=== PATIENT | female | born 2000 | race Caucasian/White ===

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

== ENCOUNTER 2021-03-16 15:54 | Emergency (ER) | payer BC, SELFPAY ==
[2021-03-16 16:01] VITALS: BP 136/68; PULSE 87; RESP 16; TEMP 36.5; O2SAT 99
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
[2021-03-16 17:29] LABS: Bilirubin Negative (Negative); Blood Negative (Negative); Clarity Sl Cloudy (Clear); Glucose Negative (Negative); Ketones Negative (Negative); Leukocyte Esterase Negative (Negative); Nitrite Negative (Negative); Specific Gravity >= 1.030 (1.005-1.025); Urobilinogen 0.2 EU/dL (Up TO 0.2); pH 5.5 (5-8)
[2021-03-16] MEDS: Orphenadrine 60 MG/2 ML VIAL IM (17:41)
[2021-03-16] MEDS: Ketorolac 60 MG/2 ML VIAL IM (17:42)
== END 2021-03-16 17:52 | disposition home or self-care (01) ==
PROVIDERS: Emergency Provider Physician Assistant; PCP Nurse Practitioner Adult Health
DX: M54.2 Cervicalgia (principal); G89.29 Other chronic pain
CPT/HCPCS: 81025; 96372; 99284; J2360; 81003; 99283; J1885

== ENCOUNTER 2021-10-14 15:50 | Outpatient (REF) | payer BC, SELFPAY ==
[2021-10-19 13:32] LABS: Helicobacter pylori Ag, Feces Negative (Negative)
== END 2021-10-14 15:51 | disposition home or self-care (01) ==
LOC: LBN 15:50
PROVIDERS: PCP Nurse Practitioner Adult Health; Visit Provider Physical Therapy Assistant
DX: K21.9 Gastro-esophageal reflux disease without esophagitis (principal)
CPT/HCPCS: 87338

== ENCOUNTER 2021-10-21 00:56 | Outpatient (CLI) | payer BC, SELFPAY ==
--- OUTSIDE RECORDS SUMMARY | 2021-10-21 01:07 | XMS_ITS | Encounter Summary ---
:2000 Author Organization [facility] Address [address] [place] [address] Care Team Providers Name Role Phone Unknown, Provider Primary Care Provider Encounter Details Date Type Department Care Team Description 10/15/2021 Lab Requisition [facility] Outr Resulting Lab, Pathology & Laboratory Provider [facility] [address] [place] [address] Social History Tobacco Use Types Packs/Day Years Used Date Never Assessed Sex Assigned at Date Recorded Not on file documented as of this encounter Plan of Treatment Not on filedocumented as of this encounter Procedures Procedure Name Priority Date/Time Associated Diagnosis Comme nts H. PYLORI ANTIGEN Routine 10/14/2021 11:07 Result s for this EDT procedure are i n the results section. documented in this encounter Results H. PYLORI ANTIGEN (10/14/2021 11:07 EDT) Pathologist Sig nature H. Pylori Negative Negative [facility] Specimen Feces - Specimen from rectum (specimen) Narrative [facility] - 10/19/2021 13:27 EDT Results were obtained with the [employer] P latinum HpSA Plus SHOSHANA. Performing Organization Address City/State/ZIP Code Phon e Number [facility] [address] [place] [address] SERVICES documented in this encounter Visit Diagnoses Not on filedocumented in this encounter Care Teams Health Care Aide Relationship Specialty Start Date End Date Unknown, Provider, PCP - General 08/22/17 documented as of this encounter
--- NOTE | 2021-10-21 07:15 | DI.RAD_ITS ---
Exam(s) RF UPPER GI SERIES SINGLE EXAM: RF UPPER GI SERIES SINGLE CLINICAL HISTORY: GERD,K21.9 TECHNIQUE: 2D and realtime digital imaging was performed. CONTRAST MATERIAL: Oral barium contrast was administered. COMPARISON: No exams were available for comparison FINDINGS: Initial plain film of the abdomen reveals a large quantity of stool throughout the colon. No small b owel or gastric distension. No radiopaque calculi. Esophagus: The esophagus is patent with no evid ence for erosions, fold thickening, strictures, or masses. With regards to the motility, there is a n ormal primary stripping wave. No tertiary contractions were noted. There is no hiatal hernia or gastr oesophageal reflux. Stomach: The stomach shows no gastric fold thickening, erosions, or masses. Duodenal Bulb: Shows no gastric fold thickening, erosions, or masses. There is normal gastric emptyi ng. IMPRESSION: Large quantity of stool, otherwise normal upper GI series. Fluoro time 27 seconds RADIATION DOSE DELIVERED: Ka,r=6.79 mGy
[2021-10-21] MEDS: Simethicone/Sod Bicarb/Cit Ac, 4 gram PACKET 1 PACKET PO (09:30)
[2021-10-21] MEDS: Barium Sulfate 60% W/V 355 ML BTL 20 ML PO (09:32)
== END 2021-10-21 01:16 ==
LOC: DI 00:57
PROVIDERS: PCP Nurse Practitioner Adult Health; Visit Provider Physical Therapy Assistant
DX: K21.9 Gastro-esophageal reflux disease without esophagitis (principal); R19.5 Other fecal abnormalities
CPT/HCPCS: 74240

== ENCOUNTER 2022-05-01 01:38 | Outpatient (CLI) | payer BC, SELFPAY ==
--- NOTE | 2022-05-01 07:30 | DI.RAD_ITS ---
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 TECHNIQUE: 2D digital imaging was performed of the left shoulder. Four images were obtained. AP, G rashey, Y-view and axillary views were obtained. COMPARISON: No exams were available for comparison FINDINGS: BONES: No acute fracture is present. No bony destructive lesion is seen. JOINTS: No dislocation present. SOFT TISSUE: Normal. IMPRESSION: Unremarkable radiographs of the left shoulder. DATA REPOSITORY: RADIATION DOSE DELIVERED:
== END 2022-05-01 01:58 ==
LOC: DI 01:38
PROVIDERS: PCP Nurse Practitioner Adult Health; Visit Provider Family Medicine
DX: M19.012 Primary osteoarthritis, left shoulder (principal)
CPT/HCPCS: 73030

== ENCOUNTER 2022-05-03 13:42 | Emergency (ER) | payer BC, SELFPAY ==
[2022-05-03] VITALS (7 sets, daily range): BP systolic 98–124; BP diastolic 60–87; PULSE 68–101; RESP 16–25; TEMP 36.9–37.1; O2SAT 98–100
--- NOTE | 2022-05-03 13:30 | RT.EKG_ITS ---
APPROVED REPORT Exam: Resting ECG Reason for Exam: CHEST PAIN Patient Location: E HR:78 bpm ECG Measurements Heart Rate 78 AXIS CO 133 P 35 QRSd 122 QRS 16 QT 379 T 29 QTc 430 Conclusion Sinus rhythm...normal P axis, V-rate 60- 99 Right bundle branch block...QRSd>120, terminal axis(90,270)
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
[2022-05-03 14:26] LABS: Abs Immature Grans 0.02 10^3/uL (0.0-0.06); Absolute Basophil Count 0.06 10^3/uL (0.0-0.2); Absolute Eosinophil Count 0.07 10^3/uL (0.0-0.7); Absolute Lymphocyte Count 2.48 10^3/uL (1.2-3.4); Absolute Monocyte Count 0.46 10^3/uL (0.1-0.8); Absolute Neutrophil Count 4.64 10^3/uL (1.2-6.7); Basophils % 0.8; Eosinophils % 0.9; HCT 39.7 % (36.0-46.0); HGB 13.5 g/dL (11.2-15.7); Immature Grans % 0.3; Lymphocytes % 32.1; MCH 27.3 pg (27.0-33.0); MCV 80 fL (80-95); MPV 10.1 fL (8.0-11.0); Neutrophils % 59.9; Platelet Count 264 10^3/uL (130-400); RBC 4.94 10^6/uL (3.93-5.22); RDW 12.4 % (11.7-14.6); RDW-SD 35.9 fL; WBC 7.73 10^3/uL (4.4-10.8)
[2022-05-03 14:48] LABS: ALT 19 U/L (14-59); AST 17 U/L (15-37); Albumin 4.5 g/dL (3.4-5.0); Alkaline Phosphatase 66 U/L (46-116); Anion Gap 6.7 mmol/L (3-11); BUN 12 mg/dL (7-18); Bilirubin, Total 0.5 mg/dL (0.2-1.0); CO2 26.3 mmol/L (21.0-32.0); CREATININE 0.8 mg/dL (0.55-1.02); Calcium 9.5 mg/dL (8.5-10.1); Chloride 101 mmol/L (98-107); Estimated GFR 106.77 (mL/min/1.73m2); Glucose 124 mg/dL (74-106); Magnesium 1.9 mg/dL (1.8-2.4); Potassium 3.4 mmol/L (3.5-5.1); Sodium 134 mmol/L (136-145); Total Protein 8.6 g/dL (6.4-8.2); Troponin I < 50 ng/L (<or=60)
[2022-05-03 15:14] LABS: D-Dimer 281 ng/mlFEU (<500)
[2022-05-03] MEDS: Normal Saline 1,000 ML 1000 ML IV (15:27)
[2022-05-03] MEDS: Potassium Chloride 20 MEQ TABCR 40 MEQ PO (15:58)
== END 2022-05-03 16:03 | disposition home or self-care (01) ==
PROVIDERS: Emergency Provider Registered Nurse Emergency; PCP Nurse Practitioner Adult Health
DX: R07.89 Other chest pain (principal); F41.9 Anxiety disorder, unspecified; I45.10 Unspecified right bundle-branch block; E87.6 Hypokalemia; R00.0 Tachycardia, unspecified; Z86.16 Personal history of COVID-19
CPT/HCPCS: 36415; 80053; 81025; 93005; 96360; 99284; 83735; 84484; 85025; 85379; 93010

== ENCOUNTER 2022-06-08 10:27 | Outpatient (CLI) | payer BC, SELFPAY ==
--- NOTE | 2022-06-08 10:15 | RT.EKG_ITS ---
APPROVED REPORT Exam: Resting ECG Reason for Exam: assess rhythm Patient Location: O HR:66 bpm ECG Measurements Heart Rate 66 AXIS MN 149 P 24 QRSd 122 QRS 16 QT 401 T 21 QTc 421 Conclusion Sinus rhythm...normal P axis, V-rate 50- 99 Right bundle branch block...QRSd>120, terminal axis(90,270)
== END 2022-06-08 10:28 | disposition home or self-care (01) ==
LOC: DI.KIM 10:28
PROVIDERS: PCP Nurse Practitioner Adult Health; Visit Provider Nurse Practitioner Adult Health
DX: R07.9 Chest pain, unspecified (principal); U07.1 COVID-19; R94.31 Abnormal electrocardiogram [ECG] [EKG]; I45.19 Other right bundle-branch block
CPT/HCPCS: 93010

== ENCOUNTER 2022-06-16 01:00 | Outpatient (CLI) | payer BC, SELFPAY ==
--- NOTE | 2022-06-16 06:45 | DI.MRI_ITS ---
Exam(s) MR UPPER JOINT LT WO EXAM: MR UPPER JOINT LT WO CLINICAL HISTORY: L SHOULDER PAIN,tendinopathy lt biceps tendon, m67.992 TECHNIQUE: Multiplanar multisequence MRI of the shoulder was performed. COMPARISON: CR XR SHOULDER LT COMPLETE 2+V from 05/01/2022 FINDINGS: MARROW:There is no evidence of fracture, Hill-Sachs deformity, nor ominous osseous lesions. ROTATOR CUFF MECHANISM: AC JOINT/ACROMIUM: No significant degenerative changes in the AC joint. Undersurface of the acromion is flat. No impinging hook nor osteophytic ridge.. There is no evidence of os acromiale. Supraspinatus: Intact. No evidence of tear nor muscle atrophy. Infraspinatus: Intact. No evidence of tear nor muscle atrophy. Teres Minor: Intact. No evidence of tear nor muscle atrophy. Subscapularis/anterior cuff: Intact. No abnormal signal at the level of the multipennate insertional fibers. No significant tear nor atrophy. BICEPS TENDON: Biceps tendon is not displaced from the intertubercular groove. No tear nor significa nt tenosynovitis. Short head biceps tendon appears unremarkable and no abnormal signal at its attach ment site to the coracoid process. LABRUM: No obvious labral tear identified. No evidence of paralabral cyst. GLENOHUMERAL JOINT: No joint effusion nor obvious loose intra-articular bodies. No chondral defects. No osteophytes. No degenerative subarticular cysts. No evidence of capsular tear. The inferior gle nohumeral ligament is intact. QUADRILATERAL SPACE: No evidence of mass in the region of the axillary nerve and dorsal circumflex hu meral vessels. Visualized triceps muscle at this level appears unremarkable. IMPRESSION: 1. No evidence of rotator cuff tear nor tendinitis of the rotator cuff components. No muscle atrophy . No significant impingement in the subacromial arch. 2. No evidence of biceps tendon displacement nor tear. No tenosynovitis evident. 3. No obvious labral tears. 4. No joint effusion or loose intra-articular bodies evident. DATA REPOSITORY:
== END 2022-06-16 01:20 ==
LOC: DI 01:00
PROVIDERS: PCP Nurse Practitioner Adult Health; Visit Provider Student in an Organized Health Care Education/Training Program
DX: M25.512 Pain in left shoulder; M67.812 Other specified disorders of synovium, left shoulder; M67.814 Other specified disorders of tendon, left shoulder
CPT/HCPCS: 73221

== ENCOUNTER 2022-06-16 01:08 | Outpatient (CLI) | payer BC, SELFPAY ==
--- NOTE | 2022-06-16 08:20 | DI.RAD_ITS ---
Exam(s) XR CHEST 2V PA LATERAL EXAM: XR CHEST 2V PA LATERAL CLINICAL HISTORY: Recent COVID,chest pain, chk heart, lungs,cough,r05.9,r07.9. TECHNIQUE: 2D digital imaging was performed. COMPARISON: No exams were available for comparison FINDINGS: 2 views: Heart size is normal. The mediastinum is not widened. Lungs are clear. No infiltrates nor pleural effusions. IMPRESSION: No acute pulmonary findings. DATA REPOSITORY: RADIATION DOSE DELIVERED:
== END 2022-06-16 01:28 ==
LOC: DI 01:09
PROVIDERS: PCP Nurse Practitioner Adult Health; Visit Provider Nurse Practitioner Adult Health
DX: R05.8 Other specified cough (principal); R07.89 Other chest pain; Z86.16 Personal history of COVID-19
CPT/HCPCS: 71046

== ENCOUNTER 2022-06-21 02:56 | Outpatient (CLI) | payer BC, SELFPAY ==
[2022-06-21 11:28] LABS: Abs Immature Grans 0.02 10^3/uL (0.0-0.06); Absolute Basophil Count 0.07 10^3/uL (0.0-0.2); Absolute Eosinophil Count 0.19 10^3/uL (0.0-0.7); Absolute Lymphocyte Count 2.65 10^3/uL (1.2-3.4); Absolute Monocyte Count 0.51 10^3/uL (0.1-0.8); Absolute Neutrophil Count 3.44 10^3/uL (1.2-6.7); ESR 6 mm/hr (0-20); Eosinophils % 2.8; HCT 38.7 % (36.0-46.0); HGB 12.5 g/dL (11.2-15.7); Immature Grans % 0.3; Lymphocytes % 38.5; MCH 26.7 pg (27.0-33.0); MCHC 32.3 % (32.0-36.0); MCV 83 fL (80-95); MPV 10.1 fL (8.0-11.0); Monocytes % 7.4; Platelet Count 228 10^3/uL (130-400); RBC 4.68 10^6/uL (3.93-5.22); RDW 13.2 % (11.7-14.6); RDW-SD 39.2 fL; WBC 6.88 10^3/uL (4.4-10.8)
[2022-06-21 12:22] LABS: ALT 23 U/L (14-59); AST 15 U/L (15-37); Albumin 4.1 g/dL (3.4-5.0); Alkaline Phosphatase 61 U/L (46-116); Anion Gap 9.7 mmol/L (3-11); BUN 13 mg/dL (7-18); Bilirubin, Total 0.2 mg/dL (0.2-1.0); C-Reactive Protein 0.09 mg/dL (0.0-0.3); CO2 26.3 mmol/L (21.0-32.0); CREATININE 0.8 mg/dL (0.55-1.02); Calcium 9.6 mg/dL (8.5-10.1); Chloride 105 mmol/L (98-107); Estimated GFR 106.77 (mL/min/1.73m2); Glucose 94 mg/dL (74-106); Lipase 60 U/L (16-77); Potassium 4.3 mmol/L (3.5-5.1); Sodium 141 mmol/L (136-145); TSH (W/Ref FT4) 1.26 uIU/mL (0.36-3.74); Total Protein 7.5 g/dL (6.4-8.2)
== END 2022-06-21 02:57 | disposition home or self-care (01) ==
LOC: LBO 02:56
PROVIDERS: PCP Nurse Practitioner Adult Health; Referring Provider Nurse Practitioner Adult Health; Visit Provider Nurse Practitioner Adult Health
DX: R05.9 Cough, unspecified (principal); R07.9 Chest pain, unspecified
CPT/HCPCS: 36415; 80053; 83690; 85652; 84443; 85025; 86140

== ENCOUNTER 2024-02-12 16:29 | Outpatient (CLI) | payer BC, SELFPAY ==
[2024-02-12 15:35] LABS: Abs Immature Grans 0.01 10^3/uL (0.0-0.06); Absolute Basophil Count 0.09 10^3/uL (0.0-0.2); Absolute Eosinophil Count 0.12 10^3/uL (0.0-0.7); Absolute Lymphocyte Count 2.67 10^3/uL (1.2-3.4); Absolute Monocyte Count 0.57 10^3/uL (0.1-0.8); Absolute Neutrophil Count 4.92 10^3/uL (1.2-6.7); Basophils % 1.1 %; Eosinophils % 1.4 %; HCT 42.1 % (36.0-46.0); HGB 13.5 g/dL (11.2-15.7); Immature Grans % 0.1 %; Lymphocytes % 31.9 %; MCH 26.8 pg (27.0-33.0); MCHC 32.1 % (32.0-36.0); MCV 84 fL (80-95); MPV 9.6 fL (8.0-11.0); Monocytes % 6.8 %; Neutrophils % 58.7 %; Platelet Count 296 10^3/uL (130-400); RBC 5.03 10^6/uL (3.93-5.22); RDW 13.3 % (11.7-14.6); RDW-SD 40.9 fL; WBC 8.38 10^3/uL (4.4-10.8)
[2024-02-12 17:49] LABS: TSH (W/Ref FT4) 1.16 uIU/mL (0.36-3.74)
== END 2024-02-12 16:30 | disposition home or self-care (01) ==
LOC: LBO 16:29
PROVIDERS: Advanced Practice Midwife; PCP Nurse Practitioner Adult Health; Visit Provider Obstetrics & Gynecology
DX: N92.0 Excessive and frequent menstruation with regular cycle (principal); F32.9 Major depressive disorder, single episode, unspecified
CPT/HCPCS: 36415; 84443; 85025

== ENCOUNTER 2024-03-31 21:31 | Outpatient (REF) | payer BC, SELFPAY | END 2024-03-31 21:32 | disposition home or self-care (01) | LOC: LBN 21:31 | PROVIDERS: PCP Nurse Practitioner Adult Health; Visit Provider Physician Assistant | DX: J02.9 Acute pharyngitis, unspecified (principal) | CPT/HCPCS: 87070 ==

== ENCOUNTER 2024-11-26 14:09 | Outpatient (CLI) | payer OTHER, SELFPAY ==
--- NOTE | 2024-11-26 14:00 | RT.EKG_ITS ---
APPROVED REPORT Exam: Resting ECG Reason for Exam: chest pain Patient Location: O HR:62 bpm ECG Measurements Heart Rate 62 AXIS MD 143 P 18 QRSd 129 QRS 15 QT 430 T 22 QTc 437 Conclusion Sinus rhythm...normal P axis, V-rate 50- 99 Right bundle branch block...QRSd>120, terminal axis(90,270)
== END 2024-11-26 14:10 | disposition home or self-care (01) ==
PROVIDERS: PCP Nurse Practitioner Adult Health; Visit Provider Nurse Practitioner Adult Health
DX: R07.9 Chest pain, unspecified (principal); Z13.1 Encounter for screening for diabetes mellitus; Z13.220 Encounter for screening for lipoid disorders; Z11.4 Encounter for screening for human immunodeficiency virus [HIV]; Z11.59 Encounter for screening for other viral diseases; I45.10 Unspecified right bundle-branch block
CPT/HCPCS: 93010

== ENCOUNTER 2024-12-05 00:26 | Outpatient (CLI) | payer OTHER, SELFPAY ==
[2024-12-05 08:49] LABS: Anion Gap 10.0 mmol/L (3-11); BUN 13 mg/dL (7-18); CO2 25.0 mmol/L (21.0-32.0); Calcium 9.1 mg/dL (8.5-10.1); Calculated LDL 90 mg/dL (<100); Chloride 105 mmol/L (98-107); Cholesterol 161 mg/dL (<200); Estimated GFR 123.01 (mL/min/1.73m2); Glucose 93 mg/dL (74-106); HDL Cholesterol 62 mg/dL (>or=50); Potassium 4.0 mmol/L (3.5-5.1); Sodium 140 mmol/L (136-145); Triglyceride 45 mg/dL (<150)
[2024-12-05 19:22] LABS: HIV-1/2 Ag & Ab Screen Negative (Negative)
[2024-12-05 19:29] LABS: Hepatitis C Ab w Rflx HCV PCR Negative (Negative)
== END 2024-12-05 00:27 | disposition home or self-care (01) ==
LOC: LBO 00:26
PROVIDERS: PCP Nurse Practitioner Adult Health; Visit Provider Nurse Practitioner Adult Health
DX: Z13.1 Encounter for screening for diabetes mellitus (principal); Z13.220 Encounter for screening for lipoid disorders; Z11.4 Encounter for screening for human immunodeficiency virus [HIV]; Z11.59 Encounter for screening for other viral diseases
CPT/HCPCS: 36415; 80048; 80061; 86803; 87389